=== PATIENT | male | born 1930 | race Caucasian/White ===

== ENCOUNTER 2016-08-21 08:06 | Emergency (ER) | payer OTHER ==
--- NOTE | 2016-08-21 08:26 | EDPHY ---
General - History Smoking Status: Former smoker Narrative: CHIEF COMPLAINT: lower extremity edema HISTORY OF PRESENT ILLNESS: patient complains of approximately 1 month of lower extremity edema. This is bilateral and symmetric. It has been insidious in onset. But steadily worsening over the past month. Feels that it got to the point that it was "Pretty bad,"so he called his son. His son reportedly called EMS. He denies any chest pain of any kind over the past month. No shortness of breath. No pain at rest with the legs, but there is a mild to moderate pain with palpation of the legs. Minimal pain with ambulation. No radiating pain. No numbness or tingling. Some redness about the legs at times. No fever chills. No cough. No trauma. No history of venous thrombolic event. He does not think that he take blood thinners. No other associated complaints or modifying factors. REVIEW OF SYSTEMS: Ten systems reviewed and are negative unless otherwise noted in the HPI PERTINENT MEDICAL HISTORY: EXAMINATION General Appearance: Alert, no distress . Hard of hearing Head: normocephalic, atraumatic Eyes: Pupils equal and round, no conjunctival pallor or injection. Bilateral arcus senilis. EOMs intact. ENT, Mouth: Right-sided hearing aid in place. Mucous membranes moist . Uvula midline. No erythema or edema. Neck: Normal inspection, supple, non-tender Respiratory: Mild crackles at the bases. Mild rhonchi. No wheezing. No consolidation. No diminishment. No distress. Cardiovascular: Regular rate and rhythm . No murmur. Symmetric DP and PT pulses at 1+. Symmetric radial pulses at 2+. Gastrointestinal: Abdomen is soft. There is a large, easily reducible periumbilical hernia. No tympany. No rigidity. Back: non-tender, no bony abnormalities Neurological: A&O, nonfocal . Strength is 4/5 and symmetric in all limbs. Skin: Warm and dry, no rash Extremities: Mild tenderness to palpation of bilateral lower extremities including the calves and shins. There is symmetric, 2+ pitting edema of the lower extremities. Minimal erythema in the pretibial regions. Mild petechiae on the pretibial regions. No purpura. No palpable cords. No pain with passive dorsiflexion of the feet. Psychiatric: Mood and affect normal DIFFERENTIAL DIAGNOSES: Including but not limited to Chronic heart failure, lower extremity edema, DVT , acute heart failure, dementia MDM: 8:20 a.m. bilateral lower extremity edema. His examination is consistent with chronic edema, likely due to chronic failure. The patient is uncertain about his medications. EMS did not provide any documentation upon his arrival. They did verbalize that he takes Lasix, lisinopril, and statin. They did not know the doses. The patient's son is reportedly on his way here. We will obtain more information upon his arrival. 8:45 a.m. patient's son has arrived. He has informed me that patient has had swelling of the lower extremities for the past few months. They have actually been attempting to have his Lasix dose increased from 20-40 daily, but there is a miscommunication with the primary care physician. He says that the nurse practitioner with the primary care office has now written a prescription and that will be available to pick up and delivery driver tomorrow. He feels this is likely the culprit. He says his father has had no complaints of pain, chest pain or shortness of breath. We discussed this in detail and I recommended that we could proceed with our workup discussing the nature of peripheral edema and possibility of failure, and the son and patient consented to our workup. Still feel the patient may be able to be discharged home safely with increasing his dose of Lasix today. Labs and ultrasound are pending at this time. 10:15 a.m. notified by radiologist of the ultrasound findings. There is normal right lower extremity. 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 I discussed this with the patient and his son and this is chronic, for which she is currently on Coumadin. 11:00 a.m. Laboratory studies within normal limits, including a normal BNP. Chest x-ray does not show any evidence of failure or pleural effusions. We discharged home in stable condition with 1 dose of Lasix by mouth here right before discharge home. He will continue this prescription tomorrow and follow up with his primary care physician otherwise. Return to ER for any chest pain or shortness of breath. Patient and his son are comfortable with this plan. SUPERVISION: This patient was independently evaluated without the aide of supervising physician. Case discussed with Dr. Sepulveda (Leobardo Mabry) Medical Decision Making: I did not see this patient while he was in the emergency department. However his care was discussed with the PA while the patient was in the department. I agree with treatment plan and management (Bruno Sepulveda) - Objective Vital Signs: Initial Vital Signs Temperature (C) 36.7 C 08/21/16 08:10 Heart Rate 87 08/21/16 08:10 Respiratory Rate 16 08/21/16 08:10 Blood Pressure 181/109 H 08/21/16 08:10 O2 Sat (%) 97 08/21/16 08:10 O2 Delivery Mode Room Air Allergies/Adverse Reactions: No Known Allergies Allergy (Unverified 08/21/16 08:10) Home Medications: Medication Instructions Recorded Lasix 08/21/16 Lisinopril 08/21/16 Simvastatin 08/21/16 Laboratory Results: Laboratory Results 08/21/16 08:59 08/21/16 08:59 08/21/16 08/21/16 08/21/16 08:59 08:59 08:59 WBC 6.35 10^3/uL 10^3/uL (3.80-9.50) RBC 5.27 10^6/uL 10^6/uL (4.40-6.38) Hgb 15.4 g/dL g/dL (13.7-17.5) Hct 45.4 % % (40.0-51.0) MCV 86.1 fL fL (81.5-99.8) MCH 29.2 pg pg (27.9-34.1) MCHC 33.9 g/dL g/dL (32.4-36.7) RDW 12.9 % % (11.5-15.2) Plt Count 235 10^3/uL 10^3/uL (150-400) MPV 8.7 fL fL (8.7-11.7) Neut % (Auto) 61.2 % % (39.3-74.2) Lymph % (Auto) 20.5 % % (15.0-45.0) [place] % (Auto) 9.8 % % (4.5-13.0) Eos % (Auto) 7.4 % % (0.6-7.6) Baso % (Auto) 0.8 % % (0.3-1.7) Nucleat RBC Rel Count 0.0 % % (0.0-0.2) Absolute Neuts (auto) 3.89 10^3/uL 10^3/uL (1.70-6.50) Absolute Lymphs (auto) 1.30 10^3/uL 10^3/uL (1.00-3.00) Absolute Monos (auto) 0.62 10^3/uL 10^3/uL (0.30-0.80) Absolute Eos (auto) 0.47 10^3/uL H 10^3/uL (0.03-0.40) Absolute Basos (auto) 0.05 10^3/uL 10^3/uL (0.02-0.10) Absolute Nucleated RBC 0.00 10^3/uL 10^3/uL (0-0.01) Immature Gran % 0.3 % % (0.0-1.1) Immature Gran # 0.02 10^3/uL 10^3/uL (0.00-0.10) PT 23.4 SEC H SEC (12.0-15.0) INR 2.07 H (0.83-1.16) APTT 34.4 SEC SEC (23.0-38.0) Sodium 139 mEq/L mEq/L (134-144) Potassium 4.4 mEq/L mEq/L (3.5-5.2) Chloride 107 mEq/L mEq/L (97-110) Carbon Dioxide 22 mEq/l mEq/l (22-31) Anion Gap 10 mEq/L mEq/L (8-16) BUN 20 mg/dL mg/dL (7-23) Creatinine 1.2 mg/dL mg/dL (0.7-1.3) Estimated GFR 57 Glucose 106 mg/dL H mg/dL (70-100) Calcium 9.5 mg/dL mg/dL (8.5-10.4) Total Bilirubin 0.9 mg/dL mg/dL (0.1-1.4) Conjugated Bilirubin 0.4 mg/dL mg/dL (0.0-0.5) Unconjugated Bilirubin 0.5 mg/dL mg/dL (0.0-1.1) AST 29 IU/L IU/L (17-59) ALT 36 IU/L IU/L (21-72) Alkaline Phosphatase 59 IU/L IU/L (38-126) Troponin I < 0.012 ng/mL ng/mL (0-0.034) NT-Pro-B Natriuret Pep 61 pg/mL pg/mL (0-450) Total Protein 7.1 g/dL g/dL (6.3-8.2) Albumin 4.0 g/dL g/dL (3.5-5.0) Medications Given: Discontinued Medications Furosemide (Lasix) 40 mg PO EDNOW ONE Stop: 08/21/16 10:50 Last Admin: 08/21/16 11:20 Dose: 40 mg Departure - Departure Disposition: Home, Routine, Self-Care Clinical Impression: Peripheral edema, Femoral vein thrombosis, left Condition: Good Instructions: Leg Edema (ED) Additional Instructions: Contact primary care physician in the morning for further care. Return to ER for any chest pain or shortness of breath Referrals: Patient,NotPresent [Unknown] - As per Instructions Michael Vyas MD [Medical Doctor] - As per Instructions
[2016-08-21 09:14] LABS: % IMMATURE GRANULYOCYTES 0.3 % (0.0-1.1); ABSOLUTE IMMATURE GRANULOCYTES 0.02 10^3/uL (0.00-0.10); ADD DIFF? NO; ADD MORPH? NO; ADD SCAN? NO; ATYPICAL LYMPHOCYTE FLAG 10 (0-99); FRAGMENT RBC FLAG 0 (0-99); HEMATOCRIT 45.4 % (40.0-51.0); HEMOGLOBIN 15.4 g/dL (13.7-17.5); LEFT SHIFT FLG 0 (0-99); LIPEMIA HEMOLYSIS FLAG 90 (0-99); MEAN CELL HEMOGLOBIN 29.2 pg (27.9-34.1); MEAN CELL HEMOGLOBIN CONCENTR. 33.9 g/dL (32.4-36.7); MEAN CELL VOLUME 86.1 fL (81.5-99.8); MEAN PLATELET VOLUME 8.7 fL (8.7-11.7); PLATELET CLUMPS FLAG 10 (0-99); PLATELET COUNT 235 10^3/uL (150-400); RED BLOOD CELL COUNT 5.27 10^6/uL (4.40-6.38); RED CELL DISTRIBUTION WIDTH 12.9 % (11.5-15.2)
[2016-08-21 09:24] LABS: INR 2.07 (0.83-1.16); PROTIME(PATIENT) 23.4 SEC (12.0-15.0)
[2016-08-21 09:25] LABS: APTT 34.4 SEC (23.0-38.0)
[2016-08-21 09:33] LABS: ALANINE AMINOTRANSFERASE 36 IU/L (21-72); ALKALINE PHOSPHATASE 59 IU/L (38-126); ANION GAP 10 mEq/L (8-16); ASPARTATE AMINOTRANSFERASE 29 IU/L (17-59); BILIRUBIN,TOTAL 0.9 mg/dL (0.1-1.4); BILIRUBIN-CONJUGATED 0.4 mg/dL (0.0-0.5); BILIRUBIN-UNCONJUGATED 0.5 mg/dL (0.0-1.1); CALCIUM 9.5 mg/dL (8.5-10.4); CARBON DIOXIDE 22 mEq/l (22-31); CHLORIDE 107 mEq/L (97-110); CREATININE 1.2 mg/dL (0.7-1.3); GLOMERULAR FILTRATION RATE 57; GLUCOSE 106 mg/dL (70-100); POTASSIUM 4.4 mEq/L (3.5-5.2); SODIUM 139 mEq/L (134-144); TOTAL PROTEIN 7.1 g/dL (6.3-8.2)
[2016-08-21 09:45] LABS: TROPONIN I < 0.012 ng/mL (0-0.034)
[2016-08-21] MEDS ORDERED: FUROSEMIDE 40 MG TAB PO ONE (10:49)
[2016-08-21 11:22] VITALS: BP 153/82; PULSE 67; RESP 18; TEMP 97.7; O2SAT 96
== END 2016-08-21 11:15 | disposition home or self-care (01) ==
LOC: EDUNIT#
DX: R60.0 Localized edema (principal); I82.412 Acute embolism and thrombosis of left femoral vein; Z87.891 Personal history of nicotine dependence